=== PATIENT | female | born 1980 | race Caucasian/White ===

== ENCOUNTER 2022-12-07 00:14 | Emergency (ER) | payer BC ==
[2022-12-07 00:22] VITALS: RESP 17; TEMP 97.7
[2022-12-07 01:21] LABS: Basophils % (A) 0 %; Eosinophils # (A) 0.2 k/uL (0-0.7); Eosinophils % (A) 3 %; HCT 38.9 % (34.0-46.0); HGB 13.5 gm/dL (11.4-16.0); Lymphocytes # (A) 2.4 k/uL (1.0-4.8); Lymphocytes % (A) 28 %; MCH 32.2 pg (25.0-35.0); MCHC 34.8 g/dL (31.0-37.0); MCV 92.6 fL (80.0-100.0); Monocytes # (A) 0.4 k/uL (0-1.0); Monocytes % (A) 4 %; Neutrophils # (A) 5.5 k/uL (1.3-7.7); Neutrophils % (A) 64 %; Platelet Count 300 k/uL (150-450); WBC 8.7 k/uL (3.8-10.6)
[2022-12-07 01:29] LABS: Partial Thromboplastin Time 22.9 sec (22.0-30.0); Prothrombin Time 10.1 sec (9.0-12.0)
[2022-12-07 01:35] LABS: ALT 26 U/L (4-34); AST 27 U/L (14-36); African American GFR (CKD) >90 (>60 ml/min/1.73 sqM); Albumin 3.9 g/dL (3.5-5.0); Alkaline Phosphatase 66 U/L (38-126); Anion Gap 14 mmol/L; Blood Urea Nitrogen 11 mg/dL (7-17); Calcium 8.8 mg/dL (8.4-10.2); Carbon Dioxide 25 mmol/L (22-30); Chloride 102 mmol/L (98-107); Glucose 101 mg/dL (74-99); Non-African American GFR(CKD) >90 (>60 ml/min/1.73 sqM); Potassium 3.4 mmol/L (3.5-5.1); Sodium 141 mmol/L (137-145); Total Bilirubin 0.3 mg/dL (0.2-1.3)
--- NOTE | 2022-12-07 02:53 | ED ---
Extremity Problem HPI - General Chief complaint: Extremity Problem,Nontraumatic Stated complaint: Lower extremity swelling and Pain Time Seen by Provider: 12/07/22 00:49 Source: patient, RN notes reviewed Mode of arrival: wheelchair Limitations: no limitations - History of Present Illness Initial comments: Patient is a 42-year-old female presenting to the emergency room with concerns regarding bilateral lower extremity edema right worse than left starting at the knees going into her toes. She reports that the swelling has progressed throughout the day while being on her feet. She also reports bruising without any known trauma any bandlike region below both patellar regions and all addition to a bruise to her left jhaveri. She denies any previous issues with lower extremity swelling. She denies any other associated symptoms with her lower extremity swelling including any chest pain, shortness of breath, abdominal pain, nausea, vomiting, erythema, fevers or chills. She has been camping recently with increased amount of alcohol intake with her last alcoholic beverage approximately 4 hours prior to arrival to the emergency room. She is a smoker but not on oral contraceptives she denies any family history of any clotting disorders including any history of DVTs. She denies any significant past medical history and does not take any medications on a regular basis. - Related Data Allergies Allergy/AdvReac Type Severity Reaction Status Date / Time Sulfa (Sulfonamide Allergy Rash/Hives Verified 12/07/22 00:18 Antibiotics) Review of Systems ROS Statement: Those systems with pertinent positive or pertinent negative responses have been documented in the HPI. ROS Other: All systems not noted in ROS Statement are negative. Past Medical History Past Medical History: No Reported History History of Any Multi-Drug Resistant Organisms: None Reported Past Surgical History: Appendectomy, Orthopedic Surgery Additional Past Surgical History / Comment(s): knee Past Psychological History: No Psychological Hx Reported Smoking Status: Vaper Past Alcohol Use History: Occasional Past Drug Use History: None Reported General Exam Limitations: no limitations General appearance: alert, in no apparent distress Head exam: Present: atraumatic, normocephalic, normal inspection Eye exam: Present: normal appearance, PERRL, EOMI. Absent: scleral icterus, conjunctival injection, periorbital swelling ENT exam: Present: normal exam, mucous membranes moist Neck exam: Present: normal inspection Respiratory exam: Absent: respiratory distress, accessory muscle use Cardiovascular Exam: Present: normal rhythm GI/Abdominal exam: Absent: distended Extremities exam: Present: full ROM, normal capillary refill, other (Trace bilateral lower extremity edema nonpitting to the tibia-fibula area with pitting pedal edema bilaterally +1. Banded-like scattered ecchymosis just below patella and to right jhaveri without any evidence of hematoma. No erythema or point tenderness.). Absent: tenderness Back exam: Present: normal inspection Neurological exam: Present: alert, oriented X3, CN II-XII intact Psychiatric exam: Present: normal affect, normal mood Skin exam: Present: other (Scattered areas of ecchymosis in a bandlike region below the patella and to left jhaveri, insect bite to left mid thigh.) Course Vital Signs 12/07/22 00:18 Temperature 97.7 F Pulse Rate 100 Respiratory 17 Rate Blood Pressure 129/88 O2 Sat by Pulse 98 Oximetry Medical Decision Making - Medical Decision Making Was pt. sent in by a medical professional or institution (, PA, COMBAT INFORMATION CENTER OFFICER, urgent care, hospital, or fci...) When possible be specific @ -No Did you speak to anyone other than the patient for history (EMS, parent, family, police, friend...)? What history was obtained from this source @ -No Did you review nursing and triage notes (agree or disagree)? Why? @ -I reviewed and agree with nursing and triage notes Were old charts reviewed (outside hosp., previous admission, EMS record, old EKG, old radiological studies, urgent care reports/EKG's, fci records)? Report findings @ -No old charts were reviewed Differential Diagnosis (chest pain, altered mental status, abdominal pain women, abdominal pain men, vaginal bleeding, weakness, fever, dyspnea, syncope, headache, dizziness, GI bleed, back pain, seizure, CVA, palpatations, mental health, musculoskeletal)? @ -Differential Musculoskeletal Muscular strain, contusion, ligament sprain, fracture, arthritis, septic arthritis, bursitis, cellulitis, muscle spasm, nerve compression, DVT, arterial occlusion, herpes zoster, electrolyte abnormality, tumor.... This is not meant to be in all inclusive list EKG interpreted by me (3pts min.). @ -Sinus rhythm, ventricular rate 89 bpm, TN interval 165 ms, QRS duration 85 ms, QT/QTC 391/437 ms, PRT axes 67, 62, 15 X-rays interpreted by me (1pt min.). @ -None done CT interpreted by me (1pt min.). @ -None done U/S (1pt. min.). @ -Bilateral lower venous Doppler report per radiologist not interpreted by me no evidence of DVT bilaterally or superficial thrombosis. What testing was considered but not performed or refused? (CT, X-rays, U/S, labs)? Why? @ -None What meds were considered but not given or refused? Why? @ -None Did you discuss the management of the patient with other professionals (professionals i.e. Dr., PA, [facility]FORMATION [facility] OFFICER, lab, RT, psych nurse, director of social services, energy systems laboratory director, teacher, training systems officer, case checker)? Give summary @ -No Was smoking cessation discussed for >3mins.? @ -No Was critical care preformed (if so, how long)? @ -No Were there social determinants of health that impacted care today? How? (Homelessness, low income, unemployed, alcoholism, drug addiction, transportation, low edu. Level, literacy, decrease access to med. care, long term, rehab)? @ -No Was there de-escalation of care discussed even if they declined (Discuss DNR or withdrawal of care, Hospice)? DNR status @ -No What co-morbidities impacted this encounter? (DM, HTN, Smoking, COPD, CAD, Cancer, CVA, ARF, Chemo, Hep., AIDS, mental health diagnosis, sleep apnea, morbid obesity)? @ -None Was patient admitted / discharged? Hospital course, mention meds given and route, prescriptions, significant lab abnormalities, going to OR and other pertinent info. @ -42-year-old female presenting to the emergency room with concerns regarding bilateral lower extremity edema right worse than left starting at the knees going into her toes. She reports that the swelling has progressed throughout the day while being on her feet. Bilateral lower [place] swelling worse at the end of the day with ecchymosis noted to bilateral lower extremities. Denies trauma however does endorse alcohol intake over the weekend low probability for DVT or blood dyscrasias. Smoker without any known history of blood clots or blood dyscrasias. Will obtain laboratory studies of CBC, coags and CMP along with bilateral venous lower extremity Dopplers along with EKG; no indication for any medication at this time. Laboratory studies reveal normal CBC, normal coags, CMP with elevated glucose of 101 low potassium at 3.4 no other abnormalities on CMP, remaining electrolytes normal, renal function normal, liver function and alkaline phosphatase normal. EKG shows sinus rhythm. Venous ultrasound bilateral lower extremities reveal no evidence of DVT or superficial thrombosis. Findings discussed with patient at length. Advised treatment of dependent edema with lower extremity elevation and low-salt diet. Questions and concerns answered. Return parameters to the emergency room discussed. Will discharge home in stable condition with conservative management of dependent edema advising follow-up with primary care provider. Undiagnosed new problem with uncertain prognosis? @ -No Drug Therapy requiring intensive monitoring for toxicity (Heparin, Nitro, Insulin, Cardizem)? @ -No Were any procedures done? @ -No Diagnosis/symptom? @ -Dependent edema Acute, or Chronic, or Acute on Chronic? @ -Acute Uncomplicated (without systemic symptoms) or Complicated (systemic symptoms)? @ -Uncomplicated Side effects of treatment? @ -No Exacerbation, Progression, or Severe Exacerbation? @ -No Poses a threat to life or bodily function? How? (Chest pain, [place], VA, pneumonia, PE, COPD, DKA, ARF, appy, cholecystitis, CVA, Diverticulitis, Homicidal, Suicidal, threat to staff... and all critical care pts) @ -No Case discussed with Dr. Feliciano - Lab Data Result diagrams: 12/07/22 01:03 12/07/22 01:03 Lab Results 12/07/22 12/07/22 12/07/22 Range/Units 01:03 01:03 01:03 WBC 8.7 (3.8-10.6) k/uL RBC 4.20 (3.80-5.40) m/uL Hgb 13.5 (11.4-16.0) gm/dL Hct 38.9 (34.0-46.0) % MCV 92.6 (80.0-100.0) fL MCH 32.2 (25.0-35.0) pg MCHC 34.8 (31.0-37.0) g/dL RDW 13.0 (11.5-15.5) % Plt Count 300 (150-450) k/uL MPV 8.0 Neutrophils % 64 % Lymphocytes % 28 % Monocytes % 4 % Eosinophils % 3 % Basophils % 0 % Neutrophils # 5.5 (1.3-7.7) k/uL Lymphocytes # 2.4 (1.0-4.8) k/uL Monocytes # 0.4 (0-1.0) k/uL Eosinophils # 0.2 (0-0.7) k/uL Basophils # 0.0 (0-0.2) k/uL PT 10.1 (9.0-12.0) sec INR 1.0 (<1.2) APTT 22.9 (22.0-30.0) sec Sodium 141 (137-145) mmol/L Potassium 3.4 L (3.5-5.1) mmol/L Chloride 102 (98-107) mmol/L Carbon Dioxide 25 (22-30) mmol/L Anion Gap 14 mmol/L BUN 11 (7-17) mg/dL Creatinine 0.71 (0.52-1.04) mg/dL Est GFR (CKD-EPI)AfAm >90 (>60 ml/min/1.73 sqM) Est GFR (CKD-EPI)NonAf >90 (>60 ml/min/1.73 sqM) Glucose 101 H (74-99) mg/dL Calcium 8.8 (8.4-10.2) mg/dL Total Bilirubin 0.3 (0.2-1.3) mg/dL AST 27 (14-36) U/L ALT 26 (4-34) U/L Alkaline Phosphatase 66 (38-126) U/L Total Protein 7.0 (6.3-8.2) g/dL Albumin 3.9 (3.5-5.0) g/dL - Radiology Data Radiology results: report reviewed, image reviewed Disposition Clinical Impression: Edema of lower extremity Disposition: HOME SELF-CARE Condition: Stable Instructions (If sedation given, give patient instructions): Edema (ED) Additional Instructions: Lower extremity elevation and low salt diet encouraged to reduce lower extremity swelling. Please follow-up with your primary care provider. Please return to the Emergency Department if symptoms worsen or any other concerns. Is patient prescribed a controlled substance at d/c from ED?: No Referrals: None,Stated [Primary Care Provider] - 1-2 days Time of Disposition: 03:26
--- NOTE | 2022-12-07 03:15 | US ---
EXAM: US Duplex Bilateral Lower Extremities Veins CLINICAL HISTORY: ITS.REASON US Reason: bilateral lower ext edema TECHNIQUE: Real-time duplex ultrasound scan of the bilateral lower extremity veins integrating B-mode two-dimensional vascular structure, Doppler spectral analysis, color flow Doppler imaging and compression. COMPARISON: No previous studies. FINDINGS: Right deep veins: Imaging of the deep venous systems bilaterally reveals no deep venous thrombosis including the common femoral veins, superficial femoral veins, the popliteal veins, and the proximal calf veins. Right superficial veins: Unremarkable. No thrombus in the visualized right great saphenous vein. Left deep veins: See above. Left superficial veins: Unremarkable. No thrombus in the visualized left great saphenous vein. Soft tissues: The soft tissues are unremarkable. No popliteal cyst. IMPRESSION: 1. Limited evaluation of the calf veins. 2. No deep venous thrombosis bilateral lower extremities.
[2022-12-07 03:31] VITALS: BP 118/79; PULSE 72
== END 2022-12-07 03:32 | disposition home or self-care (01) ==
LOC: EC 00:14
DX: R60.0 Localized edema (principal); F17.290 Nicotine dependence, other tobacco product, uncomplicated; Z88.2 Allergy status to sulfonamides
CPT/HCPCS: 36415; 80053; 85025; 85610; 85730; 93005; 93970; 99284